=== PATIENT | male | born 1985 | race Caucasian/White ===

== ENCOUNTER 2023-09-02 21:36 | Emergency (ER) | payer MEDICAID ==
[~2023-09-02] VITALS: Ht 172.7 cm; Wt 77.0 kg
[2023-09-02 21:39] VITALS: PULSE 116
[2023-09-02 21:44] VITALS: BP 137/93; RESP 18; TEMP 98.6; O2SAT 99
[2023-09-02] MEDS ORDERED: EMTR200C3 MT (23:45)
[2023-09-02] MEDS ORDERED: RALT400T MT (23:45)
[2023-09-02] MEDS ORDERED: VIRE MT (23:45)
[2023-09-03 00:14] LABS: BASOPHILS % 0.9 % (0.0-2.0); HEMATOCRIT. 42.8 % (42.0-52.0); HEMOGLOBIN. 14.6 g/dL (14.0-18.0); LYMPHOCYTES % 25.8 % (20.0-50.0); MEAN CORPUSCULAR HGB CONC 34.2 g/dL (31.0-37.0); MEAN CORPUSCULAR VOLUME 87.9 fL (80.0-94.0); MEAN PLATELET VOLUME 7.4 fl (7.4-10.4); MONOCYTES % 9.1 % (2.0-8.0); NEUTROPHILS % 63.2 % (40.0-76.0); PLATELET 303 x1000/uL (130-400); RED BLOOD CELL COUNT 4.87 mill/uL (4.7-6.1); RED CELL DISTRIBUTION WIDTH 14.4 % (11.6-14.6)
[2023-09-03 00:18] LABS: CHLORIDE 104 mEq/L (98-107); POTASSIUM 3.8 mEq/L (3.5-5.1); SODIUM 137 mEq/L (136-145)
[2023-09-03 00:19] LABS: CALCIUM 9.2 mg/dL (8.7-10.4); CARBON DIOXIDE 30 mEq/L (21-32)
[2023-09-03 00:24] LABS: CREATININE 1.2 mg/dL (0.6-1.3); GLUCOSE 115 mg/dL (70-105); UREA NITROGEN BLOOD 14 mg/dL (9-23)
[2023-09-03 00:26] LABS: ALANINE AMINOTRANSFERASE 28 IU/L (10-49); ALBUMIN 4.6 g/dL (3.2-4.8); ASPARTATE AMINOTRANSFERASE 32 IU/L (<34); BILIRUBIN TOTAL 0.5 mg/dL (0.1-1.0); PROTEIN TOTAL 7.3 g/dL (6.0-8.3)
== END 2023-09-03 01:05 | disposition home or self-care (01) ==
LOC: ER 21:36
DX: A64 Unspecified sexually transmitted disease (principal)
CPT/HCPCS: 36415; 80053; 85025; 99283